=== PATIENT | male | born 1985 | race Caucasian/White ===

== ENCOUNTER 2021-05-25 11:46 | Emergency (ER) | payer OTHER ==
[2021-05-25 11:51] VITALS: TEMP 97.6
--- NOTE | 2021-05-25 12:19 | ED ---
General Adult HPI - General Chief complaint: Abdominal Pain Stated complaint: Abd Pain/Poss Hernia Time Seen by Provider: 05/25/21 12:02 Source: patient, RN notes reviewed, old records reviewed Mode of arrival: ambulatory Limitations: no limitations - History of Present Illness Initial comments: 36-year-old male presents for evaluation of abdominal pain. 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 He was sent by his employer today for evaluation. Pain is worse with movement specifically abdominal flexion. There is been no fever. No vomiting. No change in bowels. No scrotal or testicular pain. - Related Data Allergies Allergy/AdvReac Type Severity Reaction Status Date / Time No Known Allergies Allergy Verified 05/25/21 11:46 Review of Systems ROS Statement: Those systems with pertinent positive or pertinent negative responses have been documented in the HPI. ROS Other: All systems not noted in ROS Statement are negative. Past Medical History Past Medical History: No Reported History History of Any Multi-Drug Resistant Organisms: None Reported Additional Past Surgical History / Comment(s): leg infection, swollen lyphm nodes Past Psychological History: No Psychological Hx Reported Smoking Status: Never smoker Past Alcohol Use History: None Reported Past Drug Use History: None Reported General Exam Limitations: no limitations General appearance: alert, in no apparent distress Head exam: Present: atraumatic, normocephalic Eye exam: Present: normal appearance, PERRL ENT exam: Present: normal exam Neck exam: Present: normal inspection. Absent: tenderness, meningismus Respiratory exam: Present: normal lung sounds bilaterally. Absent: respiratory distress, wheezes Cardiovascular Exam: Present: regular rate, normal rhythm GI/Abdominal exam: Present: soft. Absent: distended, tenderness, guarding, rebound, hernia (Tenderness with abdominal flexion) exam: Absent: testicular tenderness, scrotal swelling Extremities exam: Present: normal inspection, normal capillary refill. Absent: pedal edema Neurological exam: Present: alert, oriented X3 Course Vital Signs 05/25/21 05/25/21 11:46 12:19 Temperature 97.6 F Pulse Rate 109 H 110 H Respiratory 18 16 Rate Blood Pressure 173/97 154/103 O2 Sat by Pulse 99 95 Oximetry Medical Decision Making - Medical Decision Making 36-year-old male with abdominal pain consistent with abdominal wall muscle strain. No palpable hernia in the abdominal wall or inguinal region. Patient does have elevated blood pressure which she is not currently being evaluated or treated for. I did recommend he follow with primary care regarding this elevated blood pressure. This may be to his acute injury. He is given strict return parameters. He will rest awaiting the healing of this abdominal wall strain and if symptoms should worsen he will return to the emergency department for further evaluation and treatment. Disposition Clinical Impression: Abdominal pain, Abdominal wall strain Disposition: HOME SELF-CARE Instructions (If sedation given, give patient instructions): Muscle Strain (ED), Abdominal Pain (ED) Is patient prescribed a controlled substance at d/c from ED?: No Referrals: None,Stated [Primary Care Provider] - 1-2 days Haresh Yost MD [STAFF PHYSICIAN] - 1-2 days Time of Disposition: 12:18
[2021-05-25 12:23] VITALS: BP 154/103; PULSE 110; RESP 16
== END 2021-05-25 12:30 | disposition home or self-care (01) ==
LOC: EC 11:46
DX: S39.011A Strain of muscle, fascia and tendon of abdomen, initial encounter (principal); X58.XXXA Exposure to other specified factors, initial encounter
CPT/HCPCS: 99283

== ENCOUNTER 2021-10-04 13:04 | Emergency (ER) | payer OTHER ==
[2021-10-04 13:13] VITALS: BP 157/89; PULSE 115; RESP 16; TEMP 97.9
== END 2021-10-04 14:19 | disposition left against medical advice (07) ==
LOC: EC 13:04
DX: Z53.21 Procedure and treatment not carried out due to patient leaving prior to being seen by health care provider (principal)
CPT/HCPCS: 93005; 99499

== ENCOUNTER → 2022-08-08 | Outpatient (CLI) | payer OTHER ==
[2022-08-08 19:50] LABS: Basophils # (A) 0.02 X 10*3/uL (0.00-0.10); Basophils % (A) 0.3 %; Eosinophils # (A) 0.18 X 10*3/uL (0.04-0.35); Eosinophils % (A) 3.1 %; HCT 43.2 % (39.6-50.0); HGB 14.8 g/dL (13.0-17.0); Immature Grans, Automated 0.2 %; Lymphocytes # (A) 2.06 X 10*3/uL (0.90-5.00); Lymphocytes % (A) 35.8 %; MCH 30.8 pg (27.0-32.0); MCHC 34.3 g/dL (32.0-37.0); Mean Platelet Volume 10.5 fL (9.5-12.2); Monocytes # (A) 0.56 X 10*3/uL (0.20-1.00); Monocytes % (A) 9.7 %; NRBC Per 100 WBC 0 /100 WBCS (0.0-0.0); Neutrophils # (A) 2.92 X 10*3/uL (1.80-7.70); Neutrophils % (A) 50.9 %; Platelet Count 224 X 10*3/uL (140-440); RDW 12.9 % (11.5-14.5); WBC 5.75 X 10*3/uL (4.50-10.00)
[2022-08-08 20:58] LABS: African American GFR (CKD) 111.7 (60.0-200.0); Albumin 4.9 g/dL (3.8-4.9); Albumin/Globulin Ratio 1.75 (1.60-3.17); Anion Gap 12.4 mmol/L (10.00-18.00); BUN/Creat Ratio 16.1 Ratio (12.00-20.00); Blood Urea Nitrogen 16.1 mg/dL (9.0-27.0); Calcium 9.8 mg/dL (8.7-10.3); Carbon Dioxide 25.6 mmol/L (20.0-27.5); Globulin 2.8 g/dL (1.6-3.3); Non-African American GFR(CKD) 96.4 (60.0-200.0); Potassium 4.4 mmol/L (3.5-5.5); Total Bilirubin 0.5 mg/dL (0.30-1.20); Total Protein 7.7 g/dL (6.2-8.2)
[2022-08-08 21:18] LABS: Hepatitis B Core IgM Nonreactive (Nonreactive); Hepatitis B Surface Antigen Nonreactive (Nonreactive)
== END | disposition home or self-care (01) ==
LOC: LABWHC1 15:22
PROVIDERS: ATTEND Family Medicine
DX: Z00.00 Encounter for general adult medical examination without abnormal findings (principal); B18.2 Chronic viral hepatitis C
CPT/HCPCS: 36415; 80053; 82105; 85025; 86704; 86705; 87340; 87522

== ENCOUNTER → 2022-09-07 | Outpatient (CLI) | payer OTHER ==
--- NOTE | 2022-09-07 15:20 | US ---
EXAMINATION TYPE: US liver DATE OF EXAM: 09/07/2022 COMPARISON: NONE CLINICAL INDICATION: Male, 37 years old with history of B18.2 CHRONIC VIRAL HEP C; Chronic hepatitis C. TECHNIQUE: Multiple sonographic images of the right upper quadrant are obtained. FINDINGS: EXAM MEASUREMENTS: Liver Length: 14.6 cm Gallbladder Wall: Not accurately seen due to gallbladder partially contracted. 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 Pancreas: Tail was not well seen. Liver: Appears heterogeneous with increased echogenicity. Gallbladder: Appears partially contracted. Limitations, however there appears to be a possible hypere choic area within: 0.4 x 0.5 x 0.3 cm. Evidence for sonographic Vazquez's sign: No CBD: Measures upper limits versus minimally dilated* Right Kidney: No hydronephrosis or masses seen IMPRESSION: 1. Contracted gallbladder. There appears to be a gallstone present within the contracted gallbladder. No pericholecystic fluid is evident. 2. Heterogenous appearance of the liver. No discrete masses are evident.
== END | disposition home or self-care (01) ==
LOC: RADUSWWP 06:48
PROVIDERS: ATTEND Internal Medicine Gastroenterology
DX: B18.2 Chronic viral hepatitis C (principal); K82.8 Other specified diseases of gallbladder
CPT/HCPCS: 76705

== ENCOUNTER 2023-01-27 06:34 | Emergency (ER) | payer OTHER ==
[2023-01-27 07:00] VITALS: BP 141/84; PULSE 99; RESP 18; TEMP 97.9
--- NOTE | 2023-01-27 07:02 | XR ---
EXAMINATION TYPE: XR tibia fibula RT DATE OF EXAM: 01/27/2023 CLINICAL HISTORY: Pain after injury. TECHNIQUE: Two views of the right leg are obtained. COMPARISON: None. FINDINGS: There is no acute fracture or dislocation seen in the right tibia or fibula. The right kn ee and ankle joints appear within normal limits. The overlying soft tissue appears unremarkable. IMPRESSION: There is no acute fracture or dislocation seen in the right tibia or fibula.
--- NOTE | 2023-01-27 07:04 | ED ---
Lower Extremity Injury HPI - General Chief Complaint: Extremity Injury, Lower Stated Complaint: Rt leg injury Time Seen by Provider: 01/27/23 06:40 Source: patient, RN notes reviewed Mode of arrival: ambulatory Limitations: no limitations - History of Present Illness Initial Comments: 37-year-old male presents emergency Department with chief complaint of right gonsalez pain. Patient states today he accidentally kicked a coffee table. Patient states his pain, swelling. Patient states he is able to ambulate no paresthesias. - Related Data Home Medications Medication Instructions Recorded Confirmed No Known Home Medications 05/25/21 05/25/21 Allergies Allergy/AdvReac Type Severity Reaction Status Date / Time No Known Allergies Allergy Verified 01/27/23 06:38 Review of Systems ROS Statement: Those systems with pertinent positive or pertinent negative responses have been documented in the HPI. ROS Other: All systems not noted in ROS Statement are negative. Past Medical History Past Medical History: No Reported History History of Any Multi-Drug Resistant Organisms: None Reported Additional Past Surgical History / Comment(s): leg infection, swollen lyphm nodes Past Psychological History: No Psychological Hx Reported Smoking Status: Never smoker Past Alcohol Use History: Daily Past Drug Use History: None Reported General Exam Limitations: no limitations General appearance: alert, in no apparent distress Head exam: Present: atraumatic, normocephalic, normal inspection Neck exam: Present: normal inspection, full ROM. Absent: tenderness, meningismus, lymphadenopathy Respiratory exam: Present: normal lung sounds bilaterally. Absent: respiratory distress, wheezes, rales, rhonchi, stridor Cardiovascular Exam: Present: regular rate, normal rhythm, normal heart sounds. Absent: systolic murmur, diastolic murmur, rubs, gallop, clicks Extremities exam: Present: other (Right anterior lower leg there is tenderness, mild swelling and ecchymosis neurovascular intact) Course Vital Signs 01/27/23 06:36 Temperature 97.9 F Pulse Rate 99 Respiratory 18 Rate Blood Pressure 141/84 O2 Sat by Pulse 97 Oximetry Medical Decision Making - Medical Decision Making Was pt. sent in by a medical professional or institution (, PA, SAIL REPAIRER, urgent care, hospital, or residential...) When possible be specific @ -No Did you speak to anyone other than the patient for history (EMS, parent, family, police, friend...)? What history was obtained from this source @ -No Did you review nursing and triage notes (agree or disagree)? Why? @ -I reviewed and agree with nursing and triage notes Were old charts reviewed (outside hosp., previous admission, EMS record, old EKG, old radiological studies, urgent care reports/EKG's, residential records)? Report findings @ -No old charts were reviewed Differential Diagnosis (chest pain, altered mental status, abdominal pain women, abdominal pain men, vaginal bleeding, weakness, fever, dyspnea, syncope, headache, dizziness, GI bleed, back pain, seizure, CVA, palpatations, mental health, musculoskeletal)? @ -Leg contusion, leg fracture EKG interpreted by me (3pts min.). @ -[None X-rays interpreted by me (1pt min.). @ -X-ray right tib-fib no acute fracture CT interpreted by me (1pt min.). @ -None done U/S interpreted by me (1pt. min.). @ -None done What testing was considered but not performed or refused? (CT, X-rays, U/S, labs)? Why? @ -None What meds were considered but not given or refused? Why? @ -None Did you discuss the management of the patient with other professionals (professionals i.e. , PA, SAIL REPAIRER, lab, RT, psych nurse, licensed social worker, hinging machine operator, teacher, veterinary medical officer, test case developer)? Give summary @ -No Was smoking cessation discussed for >3mins.? @ -No Was critical care preformed (if so, how long)? @ -No Were there social determinants of health that impacted care today? How? (Homelessness, low income, unemployed, alcoholism, drug addiction, transportation, low edu. Level, literacy, decrease access to med. care, retirement, rehab)? @ -No Was there de-escalation of care discussed even if they declined (Discuss DNR or withdrawal of care, Hospice)? DNR status @ -No What co-morbidities impacted this encounter? (DM, HTN, Smoking, COPD, CAD, Cancer, CVA, ARF, Chemo, Hep., AIDS, mental health diagnosis, sleep apnea, morbid obesity)? @ -None Was patient admitted / discharged? Hospital course, mention meds given and route, prescriptions, significant lab abnormalities, going to OR and other pertinent info. @ -Discharged patient has a right leg contusion no acute fracture Undiagnosed new problem with uncertain prognosis? @ -No Drug Therapy requiring intensive monitoring for toxicity (Heparin, Nitro, Insulin, Cardizem)? @ -No Were any procedures done? @ -No Diagnosis/symptom? @ -Right leg contusion Acute, or Chronic, or Acute on Chronic? @ -Acute Uncomplicated (without systemic symptoms) or Complicated (systemic symptoms)? @ -Uncomplicated Side effects of treatment? @ -No Exacerbation, Progression, or Severe Exacerbation? @ -No Poses a threat to life or bodily function? How? (Chest pain, [place], MA, pneumonia, PE, COPD, DKA, ARF, appy, cholecystitis, CVA, Diverticulitis, Homicidal, Suicidal, threat to staff... and all critical care pts) @ -No Disposition Clinical Impression: Contusion of right tibia Disposition: HOME SELF-CARE Condition: Stable Instructions (If sedation given, give patient instructions): Contusion in Adults (ED) Additional Instructions: Please return to the Emergency Department if symptoms worsen or any other concerns. Is patient prescribed a controlled substance at d/c from ED?: No Referrals: Shaquille Morales MD [Primary Care Provider] - 1-2 days Time of Disposition: 07:06
== END 2023-01-27 07:22 | disposition home or self-care (01) ==
LOC: EC 06:34
DX: S80.11XA Contusion of right lower leg, initial encounter (principal); W22.09XA Striking against other stationary object, initial encounter
CPT/HCPCS: 99283

== ENCOUNTER → 2023-01-29 | Outpatient (CLI) | payer OTHER ==
--- NOTE | 2023-01-29 15:09 | XR ---
EXAMINATION TYPE: XR tibia fibula RT DATE OF EXAM: 01/29/2023 COMPARISON: NONE HISTORY: Pain TECHNIQUE: Two views are submitted. FINDINGS: The osseous structures are intact. The joint spaces are preserved. IMPRESSION: 1. No acute osseous abnormality.
== END | disposition home or self-care (01) ==
LOC: RADXRMAIN 14:43
PROVIDERS: ATTEND Family Medicine
DX: S89.91XA Unspecified injury of right lower leg, initial encounter (principal)